=== PATIENT | female | born 2000 | race Caucasian/White ===

== ENCOUNTER 2021-08-06 05:57 | Inpatient (IN) | payer BC, OTHER ==
[~2021-08-06] VITALS: Ht 162.6 cm; Wt 78.0 kg
[2021-08-06] MEDS ORDERED: PRENATAL VITAM1 EACH PO (06:45)
--- NOTE | 2021-08-07 07:59 | PR ---
[facility] [address] [facility] [place] [address] Signed PP Progress Notes Datetime Report Generated by CPN: 08/07/2021 07:59 SUBJECTIVE: [id number] Pain: Within Normal Limits Vital Signs: [id number] Vital Signs: Reviewed; Within Normal Limits Cardiovascular: Not Done Respiratory: Not Done Abdomen/Uterus: Abnormal Lochia: Normal Vulva/Perineum: Not Done Breasts: Not Done CVA Tenderness: Not Done Extremities: Normal Incision: Not Applicable Progress: Normal IMPRESSION/PLAN/PROCEDURES: [id number] Impression: Normal Progression Plan: Discharge Procedures: None Progress Notes: Doing well. She desires discharge. Signing Physician: Chelsey Pak MD Copies: ~ *Electronically Signed* 08/07/21 0759 CHELSEY PAK MD PATIENT NAME: EL CORDERO PROGRESS NOTE DATE OF : 99 PHYSICIAN: CHELSEY PAK MD RPT #: [id number] REPORT IS CONFIDENTIAL AND NOT TO BE RELEASED WITHOUT AUTHORIZATION
--- NOTE | 2021-08-08 07:58 | PR ---
[facility] [address] [facility] [place] [address] Signed PP Progress Notes Datetime Report Generated by CPN: 08/08/2021 07:58 SUBJECTIVE: [id number] Pain: Within Normal Limits Pain Comments: breast feeding better Vital Signs: [id number] Vital Signs: Reviewed; Within Normal Limits Cardiovascular: Not Done Respiratory: Not Done Abdomen/Uterus: Abnormal Lochia: Normal Vulva/Perineum: Not Done Breasts: Not Done CVA Tenderness: Not Done Extremities: Normal Incision: Not Applicable Progress: Not Applicable Exam Comments: Fundus firm, NT @ U-2. IMPRESSION/PLAN/PROCEDURES: [id number] Impression: Normal Progression Plan: Discharge Procedures: None Progress Notes: Doing well. She is feeling better about everything after staying another day. Signing Physician: Chelsey Pak MD Copies: ~ *Electronically Signed* 08/08/21 0758 CHELSEY PAK MD PATIENT NAME: EL CORDERO PROGRESS NOTE DATE OF : [birth year] PHYSICIAN: CHELSEY PAK MD RPT #: [id number] REPORT IS CONFIDENTIAL AND NOT TO BE RELEASED WITHOUT AUTHORIZATION
--- NOTE | 2021-08-09 15:28 | PATH ---
[facility] [address] [place], [place] [address] Signed SPECIMEN(S): A PLACENTA SPECIMEN SOURCE: A. PLACENTA CLINICAL HISTORY: Mother's age: 21. OB history: A0. Gestational age: 37 and 5. score: 9/9. Rh A positive (Rhogam no). Antibody screen: Negative. Maternal serologies: Rubella immune, RPR NR, GBS positive. Specific issues of concern: Hx COVID 07/20, meconium staining. 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 - Umbilical cord: Three-vessel umbilical cord with no histopathologic abnormality. - membranes: Pigmented macrophages. - Placental disc: Chorionic villi with mature villous morphology, intervillous thrombohematoma (7 mm). NAL:smn:C2NR MICROSCOPIC EXAMINATION: Histologic sections of all submitted blocks are examined by light microscopy. These findings, together with the gross examination, support the pathologic diagnosis. GROSS DESCRIPTION: The specimen, labeled "KB, placenta," is received fresh and placed in formalin and consists of a atkins discoid placenta with the following parameters: Umbilical cord: Insertion eccentric, measurement 25.5 x 1.2 cm; trivascular. Cord coiling index (per 10 cm): Five. Lesions: Umbilical cord shows slightly yellow-green discoloration. Membranes: Insertion site: Marginal, yellow-green, rupture site unremarkable. Intact. Other: Not grossly identified. Chorionic Plate: Normal radiating vascular pattern, blue-purple, shiny with yellow-green discoloration. Lesions: Not grossly identified. Other: Not grossly identified. Maternal Surface: Normal cotyledons, intact. Lesions: Not grossly identified. Measurement: 17.3 x 15.7 x 1.4 cm. Weight (trimmed): 372 grams. PATIENT NAME: EL CORDERO PATHOLOGY DATE OF : 99 REPORT #: [id number] PHYSICIAN: CHENCHO PATHOLOGY PCP: NO PRIMARY CARE PHYSICIAN REPORT IS CONFIDENTIAL AND NOT TO BE RELEASED WITHOUT AUTHORIZATION [facility] [address] [place], [place] [address] Signed Cut Surface: Maroon and spongy. Lesions: Yellow-white, firm nodule that measures 0.7 cm in greatest dimension. Basal plate fibrin measures 0.1 cm in thickness. Other Findings: Not grossly identified. Cassette Summary: (A1) Membranes and umbilical cord (A2) Placental parenchyma with yellow-white nodule, international sales representative section (A3) Placenta parenchyma (A4) Placenta parenchyma JS (under the direct supervision of a pathologist) The Gross Description was prepared using a voice recognition system. The report was reviewed for accuracy; however, sound-alike word errors, addition and/or deletions may occur. If there is any question about this report, please contact Client Services. PERFORMING LABORATORY: The technical component was performed by [facility], [address] [place] [id number] (Certified Prosthetist: Myriam Cole MD; CLIA# [id number]). Professional [facility], [address] [address] (CLIA# [id number]). Diagnostician: Sujatha Montgomery MD Pathologist Electronically Signed 08/09/2021 Copies: ~ PATIENT NAME: EL CORDERO PATHOLOGY DATE OF : 99 REPORT #: [id number] PHYSICIAN: CHENCHO PATHOLOGY PCP: NO PRIMARY CARE PHYSICIAN REPORT IS CONFIDENTIAL AND NOT TO BE RELEASED WITHOUT AUTHORIZATION
== END 2021-08-08 10:15 | disposition home or self-care (01) | DRG 807 ==
LOC: FBCO 05:57 → FBC 05:58
PROVIDERS: ADMIT Obstetrics & Gynecology; ATTEND Obstetrics & Gynecology
PROC: 10E0XZZ Delivery of Products of Conception, External Approach (ICD-10-PCS; principal; 2021-08-06)
PROC: 0KQM0ZZ Repair Perineum Muscle, Open Approach (ICD-10-PCS; 2021-08-06)
PROC: 00HU33Z Insertion of Infusion Device into Spinal Canal, Percutaneous Approach (ICD-10-PCS; 2021-08-06)
PROC: 3E0R3BZ Introduction of Anesthetic Agent into Spinal Canal, Percutaneous Approach (ICD-10-PCS; 2021-08-06)
PROC: 3E0R3NZ Introduction of Analgesics, Hypnotics, Sedatives into Spinal Canal, Percutaneous Approach (ICD-10-PCS; 2021-08-06)
DX: O99.824 Streptococcus B carrier state complicating childbirth (principal); Z37.0 Single live birth; Z3A.37 37 weeks gestation of pregnancy; O70.1 Second degree perineal laceration during delivery; Z67.10 Type A blood, Rh positive; O77.0 Labor and delivery complicated by meconium in amniotic fluid; Z86.16 Personal history of COVID-19
CPT/HCPCS: 01960; 80053; 85027; A9270; J2001; J2540; J2590; J2795; J7121

== ENCOUNTER 2023-08-21 04:04 | Inpatient (IN) | payer OTHER ==
[~2023-08-21] VITALS: Ht 157.5 cm; Wt 81.6 kg
[~2023-08-21 04:04] MED LIST: PRENATAL VITAM1 EACH PO
--- NOTE | 2023-08-21 05:00 | NUR ---
PT WAS SWABBED FOR COVID, TOLERATED IT WELL. PT WAS SWABBED FOR COVID.
[2023-08-21 05:07] LABS: HEMATOCRIT 33.2 % (35.0-50.0); HEMOGLOBIN 10.6 g/dL (12.0-18.0); MCH 24.2 (27-36); MCHC 31.9 g/dl (30-36); RBC 4.37 M/ul (4.3-5.7); RDW 14.6 (10.5-15.0)
[2023-08-21 05:10] LABS: AMPHETAMINES, UR NEGATIVE (NEGATIVE); BARBITURATES, UR NEGATIVE (NEGATIVE); BENZODIAZEPINES, UR NEGATIVE (NEGATIVE); BUPRENORPHINE,UR NEGATIVE (NEGATIVE); COCAINE, UR NEGATIVE (NEGATIVE); MARIJUANA (THC), UR NEGATIVE (NEGATIVE); MDMA, UR NEGATIVE (NEGATIVE); METHADONE, UR NEGATIVE (NEGATIVE); METHAMPHETAMINE, UR NEGATIVE (NEGATIVE); OPIATES, UR NEGATIVE (NEGATIVE); OXYCODONE, UR NEGATIVE (NEGATIVE); PHENCYCLIDINE, UR NEGATIVE (NEGATIVE); TRICYCLIC ANTIDEPRESSANT, UR NEGATIVE (NEGATIVE)
[2023-08-21 05:33] LABS: INFLUENZA B NAA NEGATIVE (NEGATIVE); RESPIRATORY SYNCYTIAL VIR NAA NEGATIVE (NEGATIVE)
[2023-08-21 05:41] LABS: ABO A; ANTIBODY SCREEN NEGATIVE; RH POSITIVE
[2023-08-21 06:00] VITALS: BP 123/58
--- NOTE | 2023-08-21 11:36 | PR ---
[facility] [address] [place], [place] [address] Signed Progress Notes IP Datetime Report Generated by CPN: 08/21/2023 11:36 PROGRESS NOTES: [id number] Impression: Reassuring Heart Rate Plan: Continue Present Management Other Plans: Consider AROM once epidural in place Informed Consent Obtain: Vaginal Delivery VITAL SIGNS: [id number] Vital Signs: Reviewed; Within Normal Limits EXAM: [id number] Effacement: 70 Station: -2 Contractions: Rare MEMBRANES: [id number] Comments: Pt doing well. Comfortable but not christiano. Cat 1 tracing. Advanced cervical dilation. Recommend AROM vs pitocin depending on station / engagement. Pt desires epidural first. Will coordinate epidural once anesthesia available. Pt understands and agrees. FETUS A: [id number] FHR Baseline: 135 Variability: Moderate 6-25bpm Accelerations: 15X15 Decelerations: None FHR Category: Category I Presentation: Vertex Comments on Fetus A: No evidence of metabolic acidosis FETUS B: [id number] Signing Physician: Gume Shetty DO Copies: ~ *Electronically Signed* 08/21/23 4020 GUME SHETTY (CAROLANN) DO PATIENT NAME: EL CORDERO PROGRESS NOTE DATE OF : 99 PHYSICIAN: GUME SHETTY) DO RPT #: [id number] REPORT IS CONFIDENTIAL AND NOT TO BE RELEASED WITHOUT AUTHORIZATION
--- NOTE | 2023-08-21 14:55 | PR ---
[facility] [address] [place], [place] [address] Signed Progress Notes IP Datetime Report Generated by CPN: 08/21/2023 14:55 PROGRESS NOTES: [id number] Impression: Normal Progression of Labor; Reassuring Heart Rate Procedures: Artificial ROM; Sterile Vag Exam Plan: Continue Present Management; Anticipate Vaginal Delivery Other Plans: Consider AROM once epidural in place Informed Consent Obtain: Vaginal Delivery VITAL SIGNS: [id number] Vital Signs: Reviewed; Within Normal Limits EXAM: [id number] Dilatation: 6.0 Effacement: 80 Station: -2 Contractions: Rare MEMBRANES: [id number] Comments: Pt seen and examined. Comfortable w/ epidural. Rare contractions but continued advanced dilation. AROM recommended and performed w/out difficulty. Small amount of meconium stained fluid. Mother and baby tolerated well. Anticipate FETUS A: [id number] FHR Baseline: 135 Variability: Moderate 6-25bpm Accelerations: 15X15 Decelerations: None FHR Category: Category I Presentation: Vertex Comments on Fetus A: No evidence of metabolic acidosis FETUS B: [id number] Signing Physician: Gume Shetty DO Copies: ~ *Electronically Signed* 08/21/23 5061 GUME SHETTY (CAROLANN) DO PATIENT NAME: EL CORDERO PROGRESS NOTE DATE OF : 99 PHYSICIAN: GUME SHETTY) DO RPT #: [id number] REPORT IS CONFIDENTIAL AND NOT TO BE RELEASED WITHOUT AUTHORIZATION
--- NOTE | 2023-08-21 17:37 | PR ---
[facility] [address] [place], [place] [address] Signed Progress Notes IP Datetime Report Generated by CPN: 08/21/2023 17:37 PROGRESS NOTES: [id number] Impression: Reassuring Heart Rate Other Impressions: slow progression of labor; rare contractions Procedures: Intrauterine Pressure Catheter; Sterile Vag Exam Plan: Augmentation Other Plans: Consider AROM once epidural in place Informed Consent Obtain: Vaginal Delivery VITAL SIGNS: [id number] Vital Signs: Reviewed; Within Normal Limits EXAM: [id number] Dilatation: 7.0 Effacement: 80 Station: -2 Contractions: q 4-5 min MEMBRANES: [id number] Comments: Pt seen and examined. Slow cervical change but rare contractions noted. Recommended IUPC and pitocin augmentation. Pt understands and agrees. IUPC placed w/out difficulty. Will start low dose pit per protocol FETUS A: [id number] FHR Baseline: 135 Variability: Moderate 6-25bpm Accelerations: 15X15 Decelerations: None FHR Category: Category I Presentation: Vertex Comments on Fetus A: No evidence of metabolic acidosis FETUS B: [id number] Signing Physician: Gume Shetty DO Copies: ~ *Electronically Signed* 08/21/23 8871 GUME SHETTY (CAROLANN) DO PATIENT NAME: EL CORDERO PROGRESS NOTE DATE OF : 99 PHYSICIAN: GUME SHETTY (JD) DO RPT #: [id number] REPORT IS CONFIDENTIAL AND NOT TO BE RELEASED WITHOUT AUTHORIZATION
--- NOTE | 2023-08-21 20:30 | NUR ---
CALLED TO DELIVERY FOR A LIGHT MUCONIUM WITH PERIODIC DECELERATIONS. PRIOR TO ARRIVAL NEOPUFF, SUCTION, AMBU BAG AND ALL RESUSITATIVE EQUIPMENT SET AND OR AT THE WARMER READY FOR USE. UPON ARRIVAL BABNY WAS PLACED ON MOTHER AND AT 1 MINUTE HR IN THE 150'S AND AT 5 MINUTES HR REMAINS IN THE 150'S WITH SpO2 95-97%. RN RELEASED RT.
[2023-08-22 06:00] LABS: HEMATOCRIT 29.4 % (35.0-50.0); HEMOGLOBIN 9.6 g/dL (12.0-18.0); MCH 24.5 (27-36); MCHC 32.7 g/dl (30-36); RBC 3.91 M/ul (4.3-5.7); RDW 14.5 (10.5-15.0)
--- NOTE | 2023-08-22 10:20 | PR ---
[facility] [address] [facility] [place], [place] [address] Signed PP Progress Notes Datetime Report Generated by CPN: 08/22/2023 10:20 SUBJECTIVE: [id number] Pain: Within Normal Limits Nausea/Vomiting: Denies Flatus: Yes Bowel Movement: No Vital Signs: [id number] Vital Signs: Reviewed; Within Normal Limits Abdomen/Uterus: Normal Lochia: Normal Extremities: Normal Progress: Normal IMPRESSION/PLAN/PROCEDURES: [id number] Impression: Normal Progression Plan: Continue Present Management; Discharge Procedures: None Progress Notes: S: 22 yo s/p . Doing well. PPD #1. Denies DAWN, CP, SOB, F/C, N/V, RUQ pain, changes in vision, vaginal discharge. Tolerating regular diet, ambulating, pain controlled, +flatus, voiding on her own. O: AFVSS Abd: Soft. Non-tender, non-distended. Uterus firm, below umbilicus. Musc: OREILLY. No C/C/E. A/P: 22 yo s/p . Doing well. Potential late discharge vs discharge tomorrow morning. Will ready discharge paperwork just in case. Signing Physician: Leia Tafoya MD Copies: ~ *Electronically Signed* 08/22/23 1020 LEIA TAFOYA MD PATIENT NAME: EL CORDERO PROGRESS NOTE DATE OF : 99 PHYSICIAN: LEIA TAFOYA MD RPT #: [id number] REPORT IS CONFIDENTIAL AND NOT TO BE RELEASED WITHOUT AUTHORIZATION
--- NOTE | 2023-08-23 08:57 | PR ---
[facility] [address] [place], [place] [address] Signed PP Progress Notes Datetime Report Generated by CPN: 08/23/2023 08:57 SUBJECTIVE: [id number] Pain: Within Normal Limits Nausea/Vomiting: Denies Flatus: Yes Bowel Movement: No Vital Signs: [id number] Vital Signs: Reviewed; Within Normal Limits Abdomen/Uterus: Normal Lochia: Normal Extremities: Normal Progress: Normal IMPRESSION/PLAN/PROCEDURES: [id number] Impression: Normal Progression Plan: Discharge Procedures: None Progress Notes: S: 22 yo s/p . PPD #2. Doing well. Denies DAWN, CP, SOB, F/C, N/V RUQ pain, changes in vision, vaginal discharge. Tolerating regular diet, ambulating, voiding on own, pain controlled. O: AFVSS Abd: Soft, non-tender. Fundus firm, below umbilicus. Musc: OREILLY. No C/C/E. A/P: Patient well. Stayed yesterday for patient comfort. Meeting hospital milestones. Will discharge home today. Signing Physician: Leia Tafoya MD Copies: ~ *Electronically Signed* 08/23/23 0857 LEIA TAFOYA MD PATIENT NAME: EL CORDERO PROGRESS NOTE DATE OF : 99 PHYSICIAN: LEIA TAFOYA MD RPT #: [id number] REPORT IS CONFIDENTIAL AND NOT TO BE RELEASED WITHOUT AUTHORIZATION
== END 2023-08-23 11:55 | disposition home or self-care (01) | DRG 807 ==
LOC: FBCO 04:04 → FBC 04:37
PROVIDERS: ADMIT Obstetrics & Gynecology; ATTEND Obstetrics & Gynecology
PROC: 10E0XZZ Delivery of Products of Conception, External Approach (ICD-10-PCS; principal; 2023-08-21)
PROC: 10H07YZ Insertion of Other Device into Products of Conception, Via Natural or Artificial Opening (ICD-10-PCS; 2023-08-21)
PROC: 10907ZC Drainage of Amniotic Fluid, Therapeutic from Products of Conception, Via Natural or Artificial Opening (ICD-10-PCS; 2023-08-21)
PROC: 3E0R3BZ Introduction of Anesthetic Agent into Spinal Canal, Percutaneous Approach (ICD-10-PCS; 2023-08-21)
PROC: 00HU33Z Insertion of Infusion Device into Spinal Canal, Percutaneous Approach (ICD-10-PCS; 2023-08-21)
PROC: 0HQ9XZZ Repair Perineum Skin, External Approach (ICD-10-PCS; 2023-08-21)
DX: O99.824 Streptococcus B carrier state complicating childbirth (principal); Z37.0 Single live birth; O76 Abnormality in fetal heart rate and rhythm complicating labor and delivery; Z20.822 Contact with and (suspected) exposure to COVID-19; O77.0 Labor and delivery complicated by meconium in amniotic fluid; O70.0 First degree perineal laceration during delivery; O69.1XX0 Labor and delivery complicated by cord around neck, with compression, not applicable or unspecified; Z3A.38 38 weeks gestation of pregnancy
CPT/HCPCS: 01960; 36415; 85027; 86850; 86900; 86901; 87502; A9270; C9803; J2540; J2590; J2795; J7121; U0002